=== PATIENT | female | born 1980 | race Two or more races ===

== ENCOUNTER 2017-07-03 10:44 | Emergency (ER) | payer OTHER ==
[~2017-07-03] VITALS: Ht 134.6 cm; Wt 71.7 kg
[2017-07-03 10:48] VITALS: Ht 134.6 cm; Wt 71.7 kg
[2017-07-03 13:16] VITALS: BP 124/75
== END 2017-07-03 13:16 | disposition home or self-care (01) ==
LOC: ED 10:44
DX: N83.201 Unspecified ovarian cyst, right side (principal)

== ENCOUNTER 2018-01-10 08:25 | Emergency (ER) | payer OTHER ==
[~2018-01-10] VITALS: Ht 139.7 cm; Wt 74.6 kg
[2018-01-10 08:26] VITALS: Ht 139.7 cm; Wt 74.6 kg
[2018-01-10 09:38] LABS: PLATELET COUNT 327 x10^3mcL (130-400); RED CELL DISTRIBUTION WIDTH 13.4 % (11.5-14.5)
[2018-01-10 09:44] LABS: BASOPHIL % 0 % (0-2)
[2018-01-10 09:49] LABS: UA SPECIFIC GRAVITY 1.015 (1.005-1.035); microscopic required? YES; urine erythrocyte NEGATIVE (NEGATIVE)
[2018-01-10 10:02] LABS: CALCIUM 9.1 mg/dL (8.5-10.1); CARBON DIOXIDE 23.2 mmol/L (21-32); CHLORIDE SERUM 103 mmol/L (98-107); CREATININE SERUM 0.7 mg/dL (0.6-1.0); GFR1 > 60 mL/min; GLUCOSE SERUM 131 mg/dL (74-106); POTASSIUM SERUM 3.9 mmol/L (3.5-5.1); SODIUM SERUM 137 mmol/L (136-145)
[2018-01-10 10:06] LABS: ALBUMIN 3.8 g/dL (3.4-5.0); ALKALINE PHOSPHATASE 110 U/L (46-116); ALT/SGPT 30 U/L (14-59); AST/SGOT 20 U/L (15-37); BILIRUBIN TOTAL 0.68 mg/dL (0.20-1.00); LIPASE 181 IU/L (73-393)
[2018-01-10 10:16] LABS: TOTAL PROTEIN, SERUM 8.5 g/dL (6.4-8.2)
[2018-01-10 12:31] VITALS: BP 129/73
== END 2018-01-10 13:11 | disposition home or self-care (01) ==
LOC: ED 08:25
PROVIDERS: Emergency Medicine
DX: N30.00 Acute cystitis without hematuria (principal); N83.8 Other noninflammatory disorders of ovary, fallopian tube and broad ligament
CPT/HCPCS: 36415; J0696; J1885; Q0092

== ENCOUNTER 2018-03-25 09:13 | Emergency (ER) | payer OTHER ==
[~2018-03-25] VITALS: Ht 134.6 cm; Wt 76.7 kg
[2018-03-25 09:22] VITALS: Ht 134.6 cm; Wt 76.7 kg
[2018-03-25 12:22] VITALS: BP 118/74
== END 2018-03-25 12:22 | disposition home or self-care (01) ==
LOC: ED 09:13
DX: R51 Headache (principal); R42 Dizziness and giddiness; R11.0 Nausea
CPT/HCPCS: 82962; J1885

== ENCOUNTER 2019-01-29 15:33 | Emergency (ER) | payer OTHER ==
[~2019-01-29] VITALS: Ht 152.4 cm; Wt 75.7 kg
[2019-01-29 16:01] VITALS: Ht 152.4 cm; Wt 75.7 kg
[2019-01-29 18:22] VITALS: BP 141/78
== END 2019-01-29 18:22 | disposition home or self-care (01) ==
LOC: ED 15:33
DX: S90.822A Blister (nonthermal), left foot, initial encounter (principal); S90.821A Blister (nonthermal), right foot, initial encounter; X58.XXXA Exposure to other specified factors, initial encounter; Y93.89 Activity, other specified; Y92.89 Other specified places as the place of occurrence of the external cause; Y99.8 Other external cause status

== ENCOUNTER 2019-02-25 15:50 | Emergency (ER) | payer OTHER ==
[~2019-02-25] VITALS: Ht 134.6 cm; Wt 76.7 kg
[2019-02-25 15:58] VITALS: Ht 134.6 cm; Wt 76.7 kg
[2019-02-25 19:56] VITALS: BP 116/59
== END 2019-02-25 19:56 | disposition home or self-care (01) ==
LOC: ED 15:50
DX: N83.201 Unspecified ovarian cyst, right side (principal); K62.89 Other specified diseases of anus and rectum

== ENCOUNTER 2019-07-02 22:45 | Emergency (ER) | payer OTHER ==
[~2019-07-02] VITALS: Ht 162.6 cm; Wt 73.9 kg
[2019-07-02 23:04] VITALS: Ht 162.6 cm; Wt 73.9 kg
[2019-07-03 02:27] VITALS: BP 123/75
== END 2019-07-03 02:27 | disposition home or self-care (01) ==
LOC: ED 22:45
DX: J20.8 Acute bronchitis due to other specified organisms (principal); T39.015A Adverse effect of aspirin, initial encounter; Y92.89 Other specified places as the place of occurrence of the external cause
CPT/HCPCS: J7512; Q0092; Q0163